=== PATIENT | male | born 1975 | race Two or more races ===

== ENCOUNTER 2024-08-12 10:27 | Emergency (ER) | payer OTHER ==
[~2024-08-12] VITALS: Ht 180.3 cm; Wt 99.8 kg
[2024-08-12] MEDS ORDERED: ORPHENADRINE CITRATE 30 MG/ML AMPUL IM STA (12:09)
[2024-08-12] MEDS ORDERED: DEXAMETHASONE SODIUM PHOSPHATE 4 MG/ML VIAL IM STA (12:09)
== END 2024-08-12 13:42 | disposition home or self-care (01) ==
LOC: ER 10:28
DX: M54.50 Low back pain, unspecified (principal)